=== PATIENT | male | born 1990 | race African-American/Black ===

== ENCOUNTER 2017-08-03 02:06 | Emergency (ER) | payer MEDICAID, SELFPAY ==
[~2017-08-03] VITALS: Ht 177.8 cm; Wt 81.8 kg
[2017-08-03 02:15] VITALS: BP 141/81
[2017-08-03] MEDS ORDERED: VITA10006 PO (02:21)
[2017-08-03] MEDS ORDERED: VITA250L PO (02:21)
[2017-08-03] MEDS ORDERED: DERMABOND TOPICAL SKIN ADHESIVE TOP ONE (02:30)
== END 2017-08-03 03:10 | disposition home or self-care (01) ==
LOC: M ED 02:06
DX: S61.412A Laceration without foreign body of left hand, initial encounter (principal); W26.2XXA Contact with edge of stiff paper, initial encounter; Y92.89 Other specified places as the place of occurrence of the external cause; Y93.89 Activity, other specified; Y99.8 Other external cause status; Z87.891 Personal history of nicotine dependence

== ENCOUNTER → 2018-09-10 | Outpatient (REF) | payer MEDICAID, SELFPAY ==
[2018-09-10 18:46] LABS: ALBUMIN 4.2 GM/DL (3.2-5.2); ALKALINE PHOSPHATASE 66 U/L (45-117); ALT/SGPT 22 U/L (12-78); ANION GAP 5 MEQ/L (8-16); AST/SGOT 21 U/L (7-37); BILIRUBIN,TOTAL 0.8 MG/DL (0.2-1.0); BLOOD UREA NITROGEN 13 MG/DL (7-18); CALCIUM LEVEL 8.7 MG/DL (8.5-10.1); CARBON DIOXIDE LEVEL 29 MEQ/L (21-32); CHLORIDE LEVEL 106 MEQ/L (98-107); CREATININE FOR GFR 1.05 MG/DL (0.70-1.30); GLOMERULAR FILTRATION RATE > 60.0 (>60); GLUCOSE, FASTING 82 MG/DL (70-100); POTASSIUM SERUM 5.1 MEQ/L (3.5-5.1); SODIUM LEVEL 140 MEQ/L (136-145); TESTOSTERONE 604 NG/DL (241-827); TOTAL 25(OH) VITAMIN D 16.9 NG/ML (30.0-100.0); TOTAL PROTEIN 7.7 GM/DL (6.4-8.2); VITAMIN B12 LEVEL 790 PG/ML (247-911)
== END ==
LOC: M LAB REF 16:25
DX: F41.9 Anxiety disorder, unspecified (principal); F34.1 Dysthymic disorder
CPT/HCPCS: 84403

== ENCOUNTER → 2019-01-15 | Outpatient (REF) | payer OTHER, MEDICAID ==
[~2019-01-15] MED LIST: VITA10006 PO; VITA250L PO
[2019-01-15 19:42] LABS: CHLAMYDIA DNA AMPLIFICATION NEGATIVE (NEGATIVE); GC DNA AMPLIFICATION NEGATIVE (NEGATIVE)
[2019-01-16 06:28] LABS: HIV 1&2 SCREEN CENTAUR NEGATIVE (NEGATIVE)
== END ==
LOC: M LAB REF 16:34
PROVIDERS: ATTEND Nurse Practitioner Adult Health
DX: Z11.3 Encounter for screening for infections with a predominantly sexual mode of transmission (principal)

== ENCOUNTER 2020-11-22 12:03 | Emergency (ER) | payer MEDICAID, OTHER ==
[~2020-11-22] VITALS: Ht 177.8 cm; Wt 96.1 kg
[2020-11-22 12:03] VITALS: BP 138/85
[2020-11-22] MEDS ORDERED: AUGM875T28 PO (12:25)
[2020-11-22] MEDS ORDERED: PRED20TA PO (12:25)
--- OUTSIDE RECORDS SUMMARY | 2020-11-22 12:59 | CCD ---
Author Organization Unknown Address [address] [place] [address] Phone [phone] Care Team Providers Care Carpentry Foreman Name Role Phone Kathleen Hayes Unavailable Unavailable Allergies Code Code System Name Reaction Severity Status Onset Wellbutrin Other Moderate Active 41032 RxNorm Zoloft Other Severe Active Medications Name Status Start Date Stop Date amoxicillin 500 mg capsule TAKE ONE CAPSULE BY MOUTH EVERY 8 HOURS UNTIL GONE Completed 09/15/2020 cholecalciferol (vitamin D3) 5000 IU daily OTC Active Not available cholecalciferol (vitamin D3) 1,250 mcg ( 50,000 unit) capsule TAKE ONE CAPSULE BY MOUTH EVERY WEEK Completed escitalopram 10 mg tablet TAKE ONE TABLET BY MOUTH ONCE DAILY Active Not available Problems Name Status Onset Date Source Dysthymia Active 01/15/[address] Concept Active 01/15/2018 History Evaluation Procedure Unknown 01/15/2018 History Clinical Finding Unknown 01/15/2018 History Overweight Active 09/10/2018 History Vitamin D Deficiency Active 10/14/2018 History Anal Fissure Unknown 01/19/2019 History Melena Active 01/19/2019 History Digestive System Finding Active 01/19/2019 History Gastroesophageal Reflux Disease without Esophagitis Active 03/05/2019 History Dental Caries on Smooth Surface Penetrating into Pulp Active 12/02/2019 History Body Mass Index 25-29 - Overweight Active 03/28/2020 History Impotence Active 03/28/2020 History Chronic Constipation Active 03/28/2020 History Cognitive Deficit in Attention Active 03/28/2020 H istory Procedure by Method Active 03/28/2020 History Severe Recurrent Major Depression without Psychotic Features Unk nown 04/18/2020 History Generalized Anxiety Disorder Active 04/18/2020 His tory Stress Monitoring Status Active 04/25/2020 History Procedures Notes: No known surgical history Results Lab Results None recorded. Past Encounters 10/24/2020 Severe Recurrent Major Depression without Psychotic Features; Dysthymia; Generalized Anxiety Disorder Luci Reyes LMSW: [address] , [facility] [address], [place] [address], Ph. 09/27/2020 Dysthymia Luci Reyes [facility]: [address] [facility], [facility] [address], [place] [address], Ph. 09/15/2020 Dysthymia; Vitamin D Deficiency Lonny Edwards, [facility]: [address] [facility], [facility] [address], [place] [address], Ph. 09/12/2020 Dysthymia; Generalized Anxiety Disorder Luci Reyes [facility]: [address] [facility], [facility] [address], [place] [address], Ph. 08/29/2020 Severe Recurrent Major Depression without Psychotic Features Luci Reyes [facility]: [address] [facility], [facility] [address], [place] [address], Ph. Social History Tobacco Smoking Status Never Smoker Vaccine List None recorded. Plan of Care Reminders Provider Appointments None recorded. Lab None recorded. Referral None recorded. Procedures None recorded. Surgeries None recorded. Imaging None recorded. Vitals 09/15/2020 09:50AM TELE[facility] 20 Height 71 in 03/28/2020 Height Weight Blood Pressure 71 in 203 lbs 117/74 mm[Hg] 03/05/2019 Height Weight Blood Pressure 71 in 188 lbs 2.08 oz 143/93 mm[Hg] 01/19/2019 Height Weight Blood Pressure 71 in 182 lbs 138/85 mm[Hg] 01/15/2019 Height Weight Blood Pressure 71 in 183 lbs 4 oz 122/84 mm[Hg] 11/25/2018 Height Weight Blood Pressure 71 in 185 lbs 2.08 oz 145/89 mm[Hg] 10/14/2018 Height Weight Blood Pressure 71 in 195 lbs 126/76 mm[Hg]
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
--- OUTSIDE RECORDS SUMMARY | 2020-11-22 12:59 | CCD ---
Author Organization Unknown Address [address] [place] [address] Phone [phone] Care Team Providers Care Solar System Designer Name Role Phone Kathleen Hayes Unavailable Unavailable Allergies Code Code System Name Reaction Severity Status Onset Wellbutrin Other Moderate Active 71280 RxNorm Zoloft Other Severe Active Medications Name [...] Results Lab Results None recorded. Past Encounters 10/31/2020 Dysthymia; Generalized Anxiety Disorder Luci Reyes LMSW: [address], [place] [address], Ph. 10/24/2020 Severe Recurrent Major Depression without Psychotic Features; Dysthymia; Generalized Anxiety Disorder Luci Reyes [facility]: [address], [facility] [address], [place] [address], Ph. 09/27/2020 Dysthymia Luci Reyes [facility]: [address] [facility], [facility] [address], [place] [address], Ph. 09/15/2020 Dysthymia; Vitamin D Deficiency Lonny Edwards, [facility]: [address], [facility] [address], [place] [address], Ph. 09/12/2020 Dysthymia; Generalized Anxiety Disorder Luci Reyes [facility]: [address] [facility], [facility] [address], [place] [address], Ph. 08/29/2020 Severe Recurrent Major Depression without Psychotic Features Luci Reyes [facility]: [address], [place] [address], Ph. Social History Tobacco Smoking Status Never [...]
--- OUTSIDE RECORDS SUMMARY | 2020-11-22 13:00 | CCD ---
Author Organization Unknown Address [address] [place] [address] Phone [phone] Care Team Providers Care Associate Professor Of Kinesiology Name Role Phone Kathleen Hayes Unavailable Unavailable Allergies None recorded. Medications Name Status Start Date Stop Date amoxicillin 500 mg capsule TAKE ONE CAPSULE BY MOUTH EVERY 8 HOURS UNTIL GONE Active Not available cholecalciferol (vitamin D3) 1,250 mcg ( 50,000 unit) capsule TAKE ONE CAPSULE BY MOUTH EVERY WEEK Active No t available Problems Name Status Onset Date Source Dysthymia Active 01/15/[address] Concept Active 01/15/2018 History Evaluation Procedure Active 01/15/2018 History Clinical Finding Active 01/15/2018 History Overweight Active 09/10/2018 History Vitamin D Deficiency Active 10/14/2018 History Anal Fissure Active 01/19/2019 History Melena Active 01/19/2019 History Digestive System Finding Active 01/19/2019 History Finding of Esophagus Active 03/05/2019 History [...] Results Lab Results None recorded. Past Encounters 09/12/2020 Dysthymia; Generalized Anxiety Disorder Luci Reyes LMSW: [address], [address], [place] [address], Ph. 08/29/2020 Severe Recurrent Major Depression without Psychotic Features Luci Reyes LMSW: [address], [address], [place] [address], Ph. Social History None recorded. Vaccine List None recorded. Plan of Care Reminders Provider Appointments None recorded. Lab None recorded. Referral None recorded. Procedures None recorded. Surgeries None recorded. Imaging None recorded. Vitals 03/28/2020 Height Weight Blood Pressure 71 in [...]
--- OUTSIDE RECORDS SUMMARY | 2020-11-22 13:00 | CCD ---
Author Organization Unknown Address [address] [place] [address] Phone [phone] Care Team Providers Care Electrocardiograph Technician Name Role Phone Kathleen Hayes Unavailable Unavailable Allergies Code Code System Name Reaction Severity Status Onset Wellbutrin Other Moderate Active 36024 RxNorm Zoloft Other Severe Active Medications Name [...] Results Lab Results None recorded. Past Encounters 09/27/2020 Dysthymia Luci Reyes LMSW: [address], [address], [place] [address], Ph. 09/15/2020 Dysthymia; Vitamin D Deficiency Lonny Edwards RPA-C: [address] [facility], [facility] [address], [place] [address], Ph. 09/12/2020 Dysthymia; Generalized Anxiety Disorder Luci Reyes [facility]: [address] [facility], [facility] [address], [place] [address], Ph. 08/29/2020 Severe Recurrent Major Depression without Psychotic Features [facility] [address] , [facility] [address], [place] [address], Ph. Social History Tobacco Smoking Status Never [...]
--- OUTSIDE RECORDS SUMMARY | 2020-11-22 13:00 | CCD ---
Author Organization Unknown Address [address] [place] [address] Phone [phone] Care Team Providers Care Personnel Representative Name Role Phone Kathleen Hayes Unavailable Unavailable Allergies Code Code System Name Reaction Severity Status Onset Wellbutrin Other Moderate Active 45970 RxNorm Zoloft Other Severe Active Medications Name Status Start Date Stop Date amoxicillin 500 mg capsule TAKE ONE CAPSULE BY MOUTH EVERY 8 HOURS UNTIL GONE Completed 09/15/2020 cholecalciferol (vitamin D3) 5000 IU daily OTC Active Not available cholecalciferol (vitamin D3) 1,250 mcg ( 50,000 unit) capsule TAKE ONE CAPSULE BY MOUTH EVERY WEEK Completed Lexapro 10 mg tablet Take 1 tablet every day by oral route. Active Not available Problems Name Status Onset [...] Results Lab Results None recorded. Past Encounters 09/15/2020 Dysthymia; Vitamin D Deficiency Lonny Edwards, RPA[facility]: [address], [address], [place] [address], Ph. 09/12/2020 Dysthymia; Generalized Anxiety Disorder Luci Reyes [facility]: [address], [facility] [address], [place] [address], Ph. 08/29/2020 Severe Recurrent Major Depression without Psychotic Features Luci Reyes [facility]: [address], [facility] [address], [place] [address], Ph. Social History Tobacco Smoking Status Never [...]
--- OUTSIDE RECORDS SUMMARY | 2020-11-22 13:00 | CCD ---
Author Organization Unknown Address [address] [place] [address] Phone [phone] Care Team Providers Care Auto Damage Trainee Name Role Phone Kathleen Haeys Unavailable Unavailable Allergies None recorded. Medications Name [...] Severe Recurrent Major Depression without Psychotic Features Act agustin 04/18/2020 History Generalized Anxiety Disorder Active 04/18/2020 His tory Stress Monitoring Status Active 04/25/2020 History Procedures Notes: No known surgical history Results Lab Results None recorded. Past Encounters 08/29/2020 Severe Recurrent Major Depression without Psychotic Features Luci Reyes [facility]: [address] [facility], [facility] [address], [place] [address], Ph. Social History None recorded. Vaccine List [...]
--- OUTSIDE RECORDS SUMMARY | 2020-11-22 13:09 | CCD ---
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 psychotic features Severe Recurrent Major Depression without Psychotic Features Problem 04/18/2020 12:00:00 AM EDT SARA ([facility]) 84562661 Inattention Inattention 03/28/2020 12:00:14 PM EDT [facility] 574944876 Male erectile dysfunction, unspecified M rama erectile dysfunction, unspecified 03/28/2020 12:00:14 PM EDT [facility] 564.09 Chronic constipation Chronic constipation 03/28 12:00:14 PM EDT [facility] V70.0 Encounter for general adult medical exam ination with abnormal findings Encounter for general adult medical examination with abnormal findings 03/28/2020 12:00:14 PM EDT [facility] V85.24 BMI 28.0-28.9 BMI 28.0-28.9 03/28/2020 12:00:14 PM EDT [facility] [id number] Procedure by method Procedure by Method Problem 0 03/28/2020 12:00:00 AM EDT SARA ([facility]) [id number] 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 Problem 03/28/2020 12:00:00 AM EDT SARA ([facility]) 584484156 Chronic constipation Chronic Constipation Problem 03/28/2020 12:00:00 AM EDT SARA ([facility]) 905616518 Impotence Impotence Problem 03/28/2020 12:00:00 AM ED T SARA ([facility]) 354226039 Body mass index 25-29 - overweight Body Mass Ind ex 25-29 - Overweight Problem 03/28/2020 12:00:00 AM EDT SARA ([facility]) 522602524 Procedure by method Procedure by Method Problem 0 03/28/2020 12:00:00 AM EDT SARA ([facility]) [id number] 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 Problem 03/28/2020 12:00:00 AM EDT SARA ([facility]) 601891547 Chronic constipation Chronic Constipation Problem 03/28/2020 12:00:00 AM EDT SARA ([facility]) 885396547 Impotence Impotence Problem 03/28/2020 12:00:00 AM ED T SARA ([facility]) 179543885 Body mass index 25-29 - overweight Body Mass Ind ex 25-29 - Overweight Problem 03/28/2020 12:00:00 AM EDT SARA ([facility]) 826501567 Procedure by method Procedure by Method Problem 0 03/28/2020 12:00:00 AM EDT SARA ([facility]) [id number] 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 Problem 03/28/2020 12:00:00 AM EDT SARA ([facility]) 623401646 Chronic constipation Chronic Constipation Problem 03/28/2020 12:00:00 AM EDT SARA ([facility]) 218054760 Impotence Impotence Problem 03/28/2020 12:00:00 AM ED T SARA ([facility]) 635888810 Body mass index 25-29 - overweight Body Mass Ind ex 25-29 - Overweight Problem 03/28/2020 12:00:00 AM EDT SARA ([facility]) 427211977 Procedure by method Procedure by Method Problem 0 03/28/2020 12:00:00 AM EDT SARA ([facility]) 616987528943220 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 Problem 03/28/2020 12:00:00 AM EDT SARA ([facility]) 093234591 Chronic constipation Chronic Constipation Problem 03/28/2020 12:00:00 AM EDT SARA ([facility]) 712323699 Impotence Impotence Problem 03/28/2020 12:00:00 AM ED T SARA ([facility]) 105975651 Body mass index 25-29 - overweight Body Mass Ind ex 25-29 - Overweight Problem 03/28/2020 12:00:00 AM EDT SARA ([facility]) 740145471 Procedure by method Procedure by Method Problem 0 03/28/2020 12:00:00 AM EDT SARA ([facility]) 802064117045031 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 Problem 03/28/2020 12:00:00 AM EDT SARA ([facility]) 497292925 Chronic constipation Chronic Constipation Problem 03/28/2020 12:00:00 AM EDT SARA ([facility]) 596314036 Impotence Impotence Problem 03/28/2020 12:00:00 AM ED T SARA ([facility]) 074509037 Body mass index 25-29 - overweight Body Mass Ind ex 25-29 - Overweight Problem 03/28/2020 12:00:00 AM EDT SARA ([facility]) 391416312 Procedure by method Procedure by Method Problem 0 03/28/2020 12:00:00 AM EDT SARA ([facility]) 367915331417198 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 Problem 03/28/2020 12:00:00 AM EDT SARA ([facility]) 793781225 Chronic constipation Chronic Constipation Problem 03/28/2020 12:00:00 AM EDT SARA ([facility]) 640969307 Impotence Impotence Problem 03/28/2020 12:00:00 AM ED T SARA ([facility]) 665536193 Body mass index 25-29 - overweight Body Mass Ind ex 25-29 - Overweight Problem 03/28/2020 12:00:00 AM EDT SRAA ([facility]) 590730145 Procedure by method Procedure by Method Problem 0 03/28/2020 12:00:00 AM EDT SARA ([facility]) 771562688182954 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 Problem 03/28/2020 12:00:00 AM EDT SARA ([facility]) 132542859 Chronic constipation Chronic Constipation Problem 03/28/2020 12:00:00 AM EDT SARA ([facility]) 047757382 Impotence Impotence Problem 03/28/2020 12:00:00 AM ED T SARA ([facility]) 611444722 Body mass index 25-29 - overweight Body Mass Ind ex 25-29 - Overweight Problem 03/28/2020 12:00:00 AM EDT SARA ([facility]) 521.03 DENTAL CARIES EXTENDING INTO PULP DENTAL CARIES EXTEND ING INTO PULP 12/02/2019 02:22:37 PM EST [facility] [id number] Dental caries on smooth surface penetrat ing into pulp Dental Caries on Smooth Surface Penetrating into Pulp Problem 020 12:00:00 AM EST [facility]ARA ([facility]) 6803685190326197 Dental caries on smooth surface penetrat ing into pulp Dental Caries on Smooth Surface Penetrating into Pulp Problem 020 12:00:00 AM EST SARA ([facility]) 8532030654290445 Dental caries on smooth surface penetrat ing into pulp Dental Caries on Smooth Surface Penetrating into Pulp Problem 020 12:00:00 AM EST SARA ([facility]) 5398023686909609 Dental caries on smooth surface penetrat ing into pulp Dental Caries on Smooth Surface Penetrating into Pulp Problem 020 12:00:00 AM EST SARA ([facility]) 5330464195272039 Dental caries on smooth surface penetrat ing into pulp Dental Caries on Smooth Surface Penetrating into Pulp Problem 020 12:00:00 AM EST SARA ([facility]) 1440100288792365 Dental caries on smooth surface penetrat ing into pulp Dental Caries on Smooth Surface Penetrating into Pulp Problem 12:00:00 AM EST SARA ([facility]) [id number] Dental caries on smooth surface penetrat ing into pulp Dental Caries on Smooth Surface Penetrating into Pulp Problem 020 12:00:00 AM EST SARA ([facility]) 64078057 Anal fissure Anal Fissure Problem 01/19/2019 12:0 0:00 AM EDT - 09/15/2020 12:00:00 AM EST SARA ([facility]) 51543753 Anal fissure Anal Fissure Problem 01/19/2019 12:0 0:00 AM EDT - 09/15/2020 12:00:00 AM EST SARA ([facility]) 59975208 Anal fissure Anal Fissure Problem 01/19/2019 12:0 0:00 AM EDT - 09/15/2020 12:00:00 AM EST SARA ([facility]) [id number] Anal fissure Anal Fissure Problem 01/19/2019 12:0 0:00 AM EDT - 09/15/2020 12:00:00 AM EST SARA ([facility]) 79321410 Anal fissure Anal Fissure Problem 01/19/2019 12:0 0:00 AM EDT - 09/15/2020 12:00:00 AM EST SARA ([facility]) [id number] Clinical finding Clinical Finding Problem 018 12:00:00 AM EDT - 09/15/2020 12:00:00 AM EST SARA ([facility]) [id number] Evaluation procedure Evaluation Procedure Problem 01/15/2018 12:00:00 AM EDT - 09/15/2020 12:00:00 AM EST SARA ([facility]) [id number] Clinical finding Clinical Finding Problem 018 12:00:00 AM EDT - 09/15/2020 12:00:00 AM EST SARA ([facility]) [id number] Evaluation procedure Evaluation Procedure Problem 01/15/2018 12:00:00 AM EDT - 09/15/2020 12:00:00 AM EST SARA ([facility]) [id number] Clinical finding Clinical Finding Problem 018 12:00:00 AM EDT - 09/15/2020 12:00:00 AM EST SARA ([facility]) [id number] Evaluation procedure Evaluation Procedure Problem 01/15/2018 12:00:00 AM EDT - 09/15/2020 12:00:00 AM EST SARA ([facility]) [id number] Clinical finding Clinical Finding Problem 018 12:00:00 AM EDT - 09/15/2020 12:00:00 AM EST SARA ([facility]) [id number] Evaluation procedure Evaluation Procedure Problem 01/15/2018 12:00:00 AM EDT - 09/15/2020 12:00:00 AM EST SARA ([facility]) [id number] Clinical finding Clinical Finding Problem 018 12:00:00 AM EDT - 09/15/2020 12:00:00 AM EST SARA ([facility]) [id number] Evaluation procedure Evaluation Procedure Problem 01/15/2018 12:00:00 AM EDT - 09/15/2020 12:00:00 AM EST SARA ([facility]) Results ID Date Data Source [id number] 06/28/2020 10:45:03 AM EDT [facility] In-House Lab TestsDate/Time Collect ed: June 28, 2020 9:15 AMComments: COVID test conducted in right nostril PT tolerated well. [place] LPN, June 28, 2020 10:45 AMAssessment & Plan Orders:Specimen Handling [CPT- [id number]] COVID-19 Testing [CPT-COVID] Name Value Range Interpretation Code Description Data Rose rce(s) Supporting Document(s) ID Date Data Source [id number] 06/28/2020 09:15:00 AM EDT [facility] Name Value Range Interpretation Code Description Data [facility] rce(s) Supporting Document(s) SARS-COV-2 RNA RESP QL ANIL+PROBE [facility] This lab was ordered by [facility] and reported by [facility]. ID Date Data Source [id number] 03/28/2020 11:15:12 AM EDT [facility] Measurements & CalculationsHeight: 71 inches (5 ft. 11 in.) 180.34 cm Weight: 203 pounds 92.27 kg Body Mass Index (BMI): 28.42BMI Interpretation: OverweightBody Surface Area (BSA): 2.12Weight Management Education Done (Nutrition/Physical Activity)Vital SignsTemperature: 97.6F tympanic Pulse Rate: 75 beats/minuteRespiratory Rate: 18 respirations/minuteBlood Pressure: 117/74 left arm sitting automaticO2 Saturation: 99% room airVital Signs performed by: Amita Oh LPN, March 28, 2020 11:29 AMVital Signs performed by: Lonny STEVENSON, March 28, 2020 11:33 AMInitial Intake Information From: patientRoom #: 1Infectious Disease / Travel ScreeningRecent travel for you or any close contacts? NoHave you had any close contact with anyone diagnosed with or under investigation for COVID-19 (coronavirus)? NoFever? NoRespiratory symptoms: cough, cold, congestion, shortness of breath, difficulty breathing? NoLoss of smell? NoLoss of taste? NoSmoking, Tobacco, Vaping or Smoke Exposure StatusSmoke Status: former smokerTobacco Use: NoDo you vape? NoHealthcare HistorySince your last office visit...Have you been admitted to the hospital? NoHave you been to an emergency room (ER) or urgent care clinic? NoHave you seen another healthcare provider? NoHave you seen a dentist? NoIntake performed by: Amita Oh LPN, March 28, 2020 11:18 AMRate Your HealthIn general, would you say your health is? Very GoodPain AssessmentAre you currently having any pain which... You would like your provider to address? No Affects your activity level? NoDepression Screening - PHQ-2Over the last two weeks, have you... Had little interest or pleasure in doing things? Nearly every day Been feeling down, depressed, or hopeless? Nearly every day PHQ-2 Score: 6Anxiety Screening - NATO-2Over the last two weeks, have you been... Feeling nervous, anxious, or on edge? Nearly every day Unable to stop or control worrying? Nearly every day NATO-2 Score: 6Generalized Anxiety Disorder 7-Item Screening (NATO-7)Answer Guide:0 = Not at all1 = Several days2 = Over half the days3 = Nearly every dayOver the last 2 weeks, how often have you been bothered by the following problems?Feeling nervous, anxious, or on edge: 3Not being able to stop or control worryinWorrying too much about different things: 2Trouble relaxinBeing so restless that it's hard to sit still: 3Becoming easily annoyed or irritable: 3Feeling afraid as if something awful might happen: 3Answer Guide:0 = Not difficult at all1 = Somewhat difficult2 = Very difficult3 = Extremely difficultHow difficult have these made it for you to do your work, take care of things at home, or get along with other people? 3GAD-7 Screening Results NATO-2 Score: 6GAD-7 Score: 20Functional Impairment: Extremely difficultRecommendation: Severe anxietyPHQ-9 1. Over the last 2 weeks, patient reports the following frequency of symptoms: a. Little interest or pleasure in doing things -Nearly every day b. Feeling down, depressed, or hopeless -Nearly every day c. Trouble falling asleep, staying asleep, or sleeping too much -Nearly every day d. Feeling tired or having little energy -Nearly every day e. Poor appetite or overeating -Nearly every day f. Feeling bad about yourself, feeling that you are a failure, or feeling that you have let yourself or your family down -Nearly every day g. Trouble concentrating on things such as reading the newspaper or watching television -Nearly every day h. Moving or speaking so slowly that other people could have noticed. Or being so fidgety or restless that you have been moving around a lot more than usual -Several days i. Thinking that you would be better off or that you want to hurt yourself in some way -Not at all2. If you checked off any problems, how difficult have these problems made it for you to do your work, take care of things at home, or get along with other people? - Extremely DifficultToday's PHQ-9 Results Score: 22 Severity: Severe Diagnosis Recommendation: Major Depression Functional Impairment: Extremely DifficultToday's Follow-Up Action Depression follow-up done. Follow-Up Action: Referred to Behavioral Health - outpatient servicesPRAPARE Sociodemographic Characteristics Race: Black or Ethnicity: Not or Preferred Language: EnglishFamily and Home Address: [address] [place] [address] What is your housing situation today? I have housing Are you worried about losing your housing? NoMoney and Resources What is the highest level of school that you have finished? some college Employed? No Are you seeking work? No Insurance: [facility] - [facility] Community PlanIn the past year, have you or any family members you live with been unable to get any of the following when it was really needed? Denies Insecurity: clothing, children's zoo caretaker, phone, legal services Admits Insecurity: food, utilities, yesIn the past year, have you had trouble affording costs associated with health insurance (such as deductibles, co- payments, etc.)? NoSocial and Emotional Health How often do you see or talk to people that you care about and feel close to? Less than once a week How stressed are you? Very muchAdditional Optional Domains In the past 3 months, have you spent more than 2 nights in a row in a group home, intermediate, retirement center or juvenile correctional facility? No Has lack of transportation kept you from medical appointments or from getting your medications? NoIn the past year, have you had trouble getting any of the following when it was really needed (check all that apply)?noneIn the past year, have you had trouble paying the costs associated with health care or medicine (such as co-payments, costs for services, prices of medicines)? NoHow confident are you that you can control and manage most of your health problems? Somewhat confident Are you a refugee? No (Country of origin: [place]) Do you feel physically and emotionally safe where you live? Yes In the past year, have you been afraid of a partner, ex-partner? NoScreening, Brief Intervention, & Referral to Treatment (SBIRT)Pre- Screening Questions How many times have you have 5 or more drinks in a day? 1How many times have you used an illegal drug or used a prescription medication for a non-medical reason? 64Performed by: Amita Oh LPN, March 28, 2020 11:25 AMPatient History Medical History:PTSDanxietydepressionSurgical History:No known surgical historyFamily History:mother bipolarSocial/Personal History: Chief Complaintannual examHistory of Present Illness (HPI)30 yo male here for referral to .Pt feels inattention, lack of focus, especially while in class. States he has episodes of hopelessness that sometimes are triggered and keep him in "a funk for a few days". Currently in summer session [employer] [facility] online classes. 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 Requests refill on Anusol-HC, requests suppositories for refractory pain. Pt has never had good control with Miralax, Colace, or anusol. Has had suppositories prescribed but never approved by insurance. HPI performed by: Lonny STEVENSON, March 28, 2020 11:37 AMTransitions of Care InboundProblem ReviewProblem List was reviewed and/or updated during this visit.Medication Reconciliation & ReviewMedication List was reviewed and/or updated during this visit, including review of any [id number] medications, herbal therapies, and/or supplements.Allergy ReviewAllergy List was reviewed and/or updated during this visit. Patient has no known allergies.Adult Preventive CareProvider Calculated and Reviewed all Clinical Protocols for patient today. Labs/Meds/Other Counseling-Nutrition and Physical Activity:BMI Interpretation: Overweight (03/28/2020) Counseling: Done (03/28/2020) Physical Activity: Done (03/28/2020)Review of Systems General: Denies loss of appetite, chills, dizziness, fatigue, fever, headache, feeling ill. Eyes: Denies blurring of vision, double vision. Ears/Nose/Throat: Denies earache, ringing in ears, decreased hearing, nasal congestion, sore throat, swollen glands. Cardiovascular: Denies chest pain, palpitations, feeling faint. Respiratory: Denies cough, difficulty breathing, shortness of breath, wheezing. Gastrointestinal: Complains of constipation, pain with BM, blood in stool. Denies nausea, vomiting, diarrhea, abdominal pain, black or tarry stools. Genitourinary: Complains of impotence. Denies pain with urination, burning with urination, incomplete emptying, blood in urine. Musculoskeletal: Denies joint pain, body aches. Skin: Denies rash, suspicious lesions. Neurologic: Denies weakness, numbness/tingling, feeling faint. Psychiatric: Complains of see HPI, depression, anxiety, feeling stressed. Physical ExamGeneral Appearance: well nourished, well hydrated, no acute distressEyes, External: conjunctivae and lids normal, EOMIExternal Ears: normal, no lesions or deformitiesHearing: grossly intactOtoscopy: canals clear, tympanic membranes intact, no fluid, light reflex intact bilaterallyExternal Nose: normal, no lesions or deformitiesNasal: mucosa, septum, and turbinates normal, nares patentLips/Teeth/Gums: no gingival inflammation, no labial lesionsPharynx: tongue normal, posterior pharynx without erythema or exudate, no thrush/aphthous ulcerNeck: supple, no masses, trachea midline, full range of motion of neckThyroid: no nodules, masses, tenderness, or enlargementRespiratory, Auscultation: clear to auscultation bilaterally; no rales, rhonchi, or wheezesRespiratory, Effort: no intercostal retractions or use of accessory musclesCardiovascular, Auscultation: S1, S2 audible; no murmur, rub, or gallop; RRRPeripheral Circulation: no clubbing, cyanosis, edema, or varicositiesAbdomen: soft, non-tender, no masses, bowel sounds normalGait & Station: normalSkin, Inspection: no rashes, lesions, or ulcerationsOrientation: oriented to time, place, and personMood & Affect: anxious appearing, good eye contact, somewhat flat affect, talkativeJudgment & Insight: intactCare Management Plan Transitions of CareInboundRate Your HealthIn general, would you say your health is? Very GoodAssessment & Plan Problems:Added: Encounter for general adult medical examination with abnormal findings (ICD-V70.0) (ICD10- Z00.01) Assessment: Instructions: Recommend annual medical appointments. Recommend routine dental and vision care. Recommend influenza vaccines annually and tetanus boosters every 10 years.BMI 28.0-28.9 (ICD-V85.24) (UVJ70-Z45.28) Assessment: Instructions: Recommend healthy lifestyle modification. Encourage portion control, healthy food choices, and increasing routine physical activity. Recommendation is for 150 minutes throughout the week of cardiovascular exercise.Chronic constipation (ICD-564.09) (OYK24-J17.09) Assessment: Instructions: Take Colace daily (up to three times daily) until bowel movements are regular. May take Miralax as needed. Referral to GI for further evaluation.Male erectile dysfunction, unspecified (OQI83-D58.9) Assessment: Instructions: Check PSA. If normal, then trial of Viagra as needed.Inattention (WXQ51-S66.840) Assessment: Pt is unsure if anxiey and is concerned about underlying learning disability. Appears more anxiety and possibly ADD/ADHD symptoms, but agree for MH eval. Instructions: Possibly anxiety related. Referred for mental health evaluation.Assessed:GERD (ICD- 530.81) (MLN65-Q89.9) Assessment: Instructions: Recommend taking omeprazole only as needed. If you start needing this daily, please let me know and we need to evaluate your heartburn further.Chronic depression (ICD-311) (MCR23-I41.1) Assessment: Instructions: Referred to mental health counseling in house.Anxiety disorder, unspecified (OMU08-E24.9) Assessment: Instructions: As above.Overweight (ICD-278.02) (VNP30-T68.3) Assessment: Instructions: Fasting labs have been ordered for you today. When labs are drawn, please ensure that you have had nothing to eat or drink for 8-10 hours prior to the blood drawn. Water or black coffee is OK to have before the blood draw.Anal or rectal pain (ICD-569.42) (NPM66-Y02.89) Assessment: Instructions: As above, secondary to constipation. Increase water and daily exercise to keep the gut moving more consistently. Refilled Anusol-HC and sent for suppositories for as needed.Anal fissure, unspecified (VDS93-Z47.2) Assessment: Instructions: As above.Rectal tenesmus (ICD-787.99) (VDL24-G33.8) Assessment: Instructions: As above.Hematochezia (ICD-578.1) (HTL46-K47.1) Assessment: Instructions: As above.Removed:Screening examination for venereal disease (ICD-V74.5) (ICD10- Z11.3), Encounter for screening for human immunodeficiency virus [HIV] (ICD- V73.89) (OAI58-L69.4), Body mass index (BMI) 27.0-27.9, adult (ICD-V85.23) (IIN52-X17.27)Patient Instructions/Care Plan: Encounter for general adult medical examination with abnormal findings: Recommend annual medical appointments. Recommend routine dental and vision care. Recommend influenza vaccines annually and tetanus boosters every 10 years.GERD: Recommend taking omeprazole only as needed. If you start needing this daily, please let me know and we need to evaluate your heartburn further.BMI 28.0-28.9: Recommend healthy lifestyle modification. Encourage portion control, healthy food choices, and increasing routine physical activity. Recommendation is for 150 minutes throughout the week of cardiovascular exercise.Chronic constipation: Take Colace daily (up to three times daily) until bowel movements are regular. May take Miralax as needed. Referral to GI for further evaluation.Male erectile dysfunction- unspecified: Check PSA. If normal, then trial of Viagra as needed.Chronic depression: Referred to mental health counseling in house.Anxiety disorder- unspecified: As above.Overweight: Fasting labs have been ordered for you today. When labs are drawn, please ensure that you have had nothing to eat or drink for 8-10 hours prior to the blood drawn. Water or black coffee is OK to have before the blood draw.Anal or rectal pain: As above, secondary to constipation. Increase water and daily exercise to keep the gut moving more consistently. Refilled Anusol-HC and sent for suppositories for as needed.Anal fissure- unspecified: As above.Rectal tenesmus: As above.Hematochezia: As above.Inattention: Possibly anxiety related. Referred for mental health evaluation. Plan developed in collaboration with patient and/or familyMedications:VITAMIN D3 125 MCG (5000 UT) ORAL CAPSULEOMEPRAZOLE 20 MG ORAL CAPSULE DELAYED RELEASEMIRALAX ORAL POWDERCOLACE 100 MG ORAL CAPSULEANUSOL-HC 2.5 % RECTAL CREAMHYDROCORTISONE ACETATE 25 MG RECTAL SUPPOSITORYVITAMIN D3 67813 UNIT ORAL TABLETMedication Changes:Added: VITAMIN D3 125 MCG (5000 UT) ORAL CAPSULERefilled:ANUSOL-HC 2.5 % RECTAL CREAM-apply bid prn Qty: 60[Unspecified] Refills: 2 Method: ElectronicHYDROCORTISONE ACETATE 25 MG RECTAL SUPPOSITORY-1 supp TN every day as needed Qty: 12[Suppository] Refills: 5 Method: ElectronicRemoved:AMOXICILLIN 500 MG CAPS-1 tablet by mouth every 8 hours until gone, AMOXICILLIN 500 MG CAPS-1 tablet by mouth every 8 hours until gone, WELLBUTRIN XL 150 MG ORAL TABLET EXTENDED RELEASE 24 HOUR-take one tablet by mouth daily in the evenings., WELLBUTRIN XL 300 MG ORAL TABLET EXTENDED RELEASE 24 HOUR-take one tablet by mouth daily in AM, RANITIDINE HCL 150 MG ORAL TABLET-1 tab by mouth twice per day before mealsAllergies:No Known Allergies (updated 03/28/2020) Orders:COMP METABOLIC PANEL [CPT-91181] CBC W/DIFF [CPT- 28463] LIPID PANEL [CPT-47686] TSH [CPT-13823] T-4 free [CPT-97891] Vitamin D 250H Unspecified [CPT-78037] PROSTATE CANCER SCREENING; PSA TEST [CPT-G0103] Mental Health Consult [CPT-93811] Gastroenterology Consult [CPT-63853] Preventive, Est, (18-39) [CPT-60270] Follow-Up Return to clinic: in 90 days for follow upAdditional Follow-Up: 3 month follow-upClinical Visit Summary CompletedMedications:HYDROCORTISONE ACETATE 25 MG RECTAL SUPPOSITORY (HYDROCORTISONE ACETATE) 1 supp TN every day as needed #12[Suppository] x 5 Route:RECTAL Entered and Authorized by: Lonny STEVENSON Method used: Electronically to [facility]* (retail) [address] [place] [address] Fax: Note to Pharmacy: Route: RECTAL; RxID: [id number] 2.5 % RECTAL CREAM (HYDROCORTISONE) apply bid prn #60[Unspecified] x 2 Route:RECTAL Entered and Authorized by: Lonny STEVENSON Method used: Electronically to [facility]* (retail) [address] [place] [address] Fax: Note to Pharmacy: Route: RECTAL; RxID: [id number] signed by Lonny STEVENSON on 04/06/2020 at 8:05 AM Name Value Range Interpretation Code Description Data Rose rce(s) Supporting Document(s) ID Date Data Source [id number] 12/02/2019 12:58:00 PM [facility] Current Problems: DENTAL CARIES EXTENDIN G INTO PULP (ICD-521.03) (ICD10- K02.63)GERD (ICD-530.81) (ERO40-Z20.9)Rectal tenesmus (ICD-787.99) (ICD10- R19.8)Hematochezia (ICD-578.1) (EBG68-O08.1)Anal fissure, unspecified (ICD10- K60.2)vitamin D deficiency (ICD-268.9) (NRW42-M64.9)Overweight (ICD-278.02) (VWU82-S60.3)Anal or rectal pain (ICD-569.42) (TYZ39-I43.89)Encounter for screening for lipoid disorders (ICD-V77.91) (JCQ16-B44.220)Screening examination for venereal disease (ICD-V74.5) (QPV68-O62.3)Encounter for screening for human immunodeficiency virus [HIV] (ICD-V73.89) (JJK88-D86.4)Body mass index (BMI) 27.0-27.9, adult (ICD-V85.23) (WAU46-A33.27)Anxiety disorder, unspecified (AGI97-O51.9)Chronic depression (ICD-311) (YEY83-R15.1)Problem list reviewed during this update.Current Medications: AMOXICILLIN 500 MG CAPS (AMOXICILLIN) 1 tablet by mouth every 8 hours until gone; Route: ORALAMOXICILLIN 500 MG CAPS (AMOXICILLIN) 1 tablet by mouth every 8 hours until gone; Route: ORALRANITIDINE HCL 150 MG ORAL TABLET (RANITIDINE HCL) 1 tab by mouth twice per day before meals; Route: ORALOMEPRAZOLE 20 MG ORAL CAPSULE DELAYED RELEASE (OMEPRAZOLE) 1 capsule by mouth every day; Route: ORALMIRALAX ORAL POWDER (POLYETHYLENE GLYCOL 3350) 1 capful bid until bowel movements regular, then once daily prn constipation- titrate to effect- take with large glass of water; Route: ORALCOLACE 100 MG ORAL CAPSULE (DOCUSATE SODIUM) 1 po tid prn constipation; Route: ORALANUSOL-HC 2.5 % RECTAL CREAM (HYDROCORTISONE) apply bid prn; Route: RECTALHYDROCORTISONE ACETATE 25 MG RECTAL SUPPOSITORY (HYDROCORTISONE ACETATE) 1 supp TN every day as needed; Route: RECTALWELLBUTRIN XL 150 MG ORAL TABLET EXTENDED RELEASE 24 HOUR (BUPROPION HCL) take one tablet by mouth daily in the evenings.; Route: ORALVITAMIN D3 83587 UNIT ORAL TABLET (CHOLECALCIFEROL) take one tablet by mouth once weekly.; Route: ORALWELLBUTRIN XL 300 MG ORAL TABLET EXTENDED RELEASE 24 HOUR (BUPROPION HCL) take one tablet by mouth daily in AM; Route: ORALMedication list reviewed during this update.Allergy list reviewed during this update.No known allergies. Dental Chart: Procedures:Type - CDT Code - Description B - (D0230) Intraoral, periapical, each additional radiographic image on Tooth # 14 (Performed by Jenny Balbuena DMD) B - (D0140) Limited oral evaluation - problem focused on Tooth # 2 (Performed by Jenny Balbuena DMD) B - (D0220) Intraoral, periapical, first radiographic image on Tooth # 2 (Performed by Jenny Balbuena DMD) Chart Notes:nando (Dec 02 2019 2:21PM): S: CC:" I have severe pain in my left side, it depends what I eat and I have pain on my right , both on top"O: RMHx (-) Per Pt. HPI: [address]: 10 BP: 135/83 P: 60, PA of 2 and 14, BW of 2, Cold test, no response on 2 and 14.A: DDS recommends RCT od Ext. Patient wants root canals done. , DX:caries into pulpP:Refer to ENDOE-scribe Amoxicillin 500mg q8h until gone dispense 21 tabs zero refills [facility] about narcotic,told pt to alternate Ibuprophen 600- 800mg and tylenol 500mg every 4 to 6 hrs for pain when needed Assisted By: [place]: Jenny Richardson DMD by nando (12/02/2019 2:21 PM): Tooth Notes and Watches:- Tooth 14 Note: Referred to Jenny Perez DMD by estuardo (12/02/2019 1:28 PM): - Tooth 2 Note: Referred to Jenny Perez DMD by estuardo (12/02/2019 1:28 PM): Assessment & Plan Problems:Added: DENTAL CARIES EXTENDING INTO PULP (ICD-521.03) (LBL42-N70.63)Medications:AMOXICILLIN 500 MG CAPSAMOXICILLIN 500 MG CAPSRANITIDINE HCL 150 MG ORAL TABLETOMEPRAZOLE 20 MG ORAL CAPSULE DELAYED RELEASEMIRALAX ORAL POWDERCOLACE 100 MG ORAL CAPSULEANUSOL- HC 2.5 % RECTAL CREAMHYDROCORTISONE ACETATE 25 MG RECTAL SUPPOSITORYWELLBUTRIN XL 150 MG ORAL TABLET EXTENDED RELEASE 24 HOURVITAMIN D3 73783 UNIT ORAL TABLETWELLBUTRIN XL 300 MG ORAL TABLET EXTENDED RELEASE 24 HOURMedication Changes:New Prescription:AMOXICILLIN 500 MG CAPS-1 tablet by mouth every 8 hours until gone Qty: 21 Refills: 0 Method: AMOXICILLIN 500 MG CAPS-1 tablet by mouth every 8 hours until gone Qty: 21[Capsule] Refills: 0 Method: ElectronicAllergies:No Known Allergies (updated 12/02/2019) Orders:Endodontics Referral [CPT-11322] Name Value Range Interpretation Code Description Data Rose rce(s) Supporting Document(s) ID Date Data Source [id number] 11/18/2019 01:15:21 PM [facility] Patient History Medical History:PTSDanxi etydepressionFamily History:mother bipolar Current Problems: GERD (ICD-530.81) (MSJ73-N82.9)Rectal tenesmus (ICD- 787.99) (JTG44-I70.8)Hematochezia (ICD-578.1) (MPE48-E85.1)Anal fissure, unspecified (PQG18-M67.2)vitamin D deficiency (ICD-268.9) (ICD10- E55.9)Overweight (ICD-278.02) (ZQK51-S41.3)Anal or rectal pain (ICD-569.42) (XDF09-R14.89)Encounter for screening for lipoid disorders (ICD-V77.91) (ICD10- Z13.220)Screening examination for venereal disease (ICD-V74.5) (ICD10- Z11.3)Encounter for screening for human immunodeficiency virus [HIV] (ICD- V73.89) (XYS99-N59.4)Body mass index (BMI) 27.0-27.9, adult (ICD-V85.23) (ICD10- Z68.27)Anxiety disorder, unspecified (HIH00-H78.9)Chronic depression (ICD-311) (UPQ46-W23.1)Current Medications: RANITIDINE HCL 150 MG ORAL TABLET (RANITIDINE HCL) 1 tab by mouth twice per day before meals; Route: ORALOMEPRAZOLE 20 MG ORAL CAPSULE DELAYED RELEASE (OMEPRAZOLE) 1 capsule by mouth every day; Route: ORALMIRALAX ORAL POWDER (POLYETHYLENE GLYCOL 3350) 1 capful bid until bowel movements regular, then once daily prn constipation- titrate to effect- take with large glass of water; Route: ORALCOLACE 100 MG ORAL CAPSULE (DOCUSATE SODIUM) 1 po tid prn constipation; Route: ORALANUSOL-HC 2.5 % RECTAL CREAM (HYDROCORTISONE) apply bid prn; Route: RECTALHYDROCORTISONE ACETATE 25 MG RECTAL SUPPOSITORY (HYDROCORTISONE ACETATE) 1 supp TN every day as needed; Route: RECTALWELLBUTRIN XL 150 MG ORAL TABLET EXTENDED RELEASE 24 HOUR (BUPROPION HCL) take one tablet by mouth daily in the evenings.; Route: ORALVITAMIN D3 37642 UNIT ORAL TABLET (CHOLECALCIFEROL) take one tablet by mouth once weekly.; Route: ORALWELLBUTRIN XL 300 MG ORAL TABLET EXTENDED RELEASE 24 HOUR (BUPROPION HCL) take one tablet by mouth daily in AM; Route: ORALPast Medical History:(reviewed - no changes required) PTSDanxietydepression Dental Chart: Procedures:Type - CDT Code - Description C - (D2222) No Charge Visit (Performed by Lynn Silva) Chart Notes:danny (Nov 18 2019 1:37PM): Patient presented for NIGHT AUDITOR comp exam. Patient reported that he wanted to get his tooth fixed, and has an appointment coming at [facility] on Nov 30. Explained that if it is less than 6 months insurance will not cover NIGHT AUDITOR comp exam, and that we cannot guarantee that we can get the tooth fixed before Nov. Suggested that since patient is already an established patient at [facility] to call them up to see if they have any cancellations. Patient reported that he is not willing to pay out of pocket, and will continue with his appt on Nov 30. Dismissed patient without any questionsLynn Silva by danny (11/18/2019 1:37 PM): Tooth Notes and Watches: Note: There are Un-Billed (C Type) procedures on this document.Assessment & Plan Medications:RANITIDINE HCL 150 MG ORAL TABLETOMEPRAZOLE 20 MG ORAL CAPSULE DELAYED RELEASEMIRALAX ORAL POWDERCOLACE 100 MG ORAL CAPSULEANUSOL-HC 2.5 % RECTAL CREAMHYDROCORTISONE ACETATE 25 MG RECTAL SUPPOSITORYWELLBUTRIN XL 150 MG ORAL TABLET EXTENDED RELEASE 24 HOURVITAMIN D3 78666 UNIT ORAL TABLETWELLBUTRIN XL 300 MG ORAL TABLET EXTENDED RELEASE 24 HOURAllergies:No Known Allergies (updated 03/05/2019) Name Value Range Interpretation Code Description Data Rose rce(s) Supporting Document(s) Procedure Vital Signs ID Date Data Source UNK Name Value Range Interpretation Code Description Data Source(s) Body height 71 [in_i] 71 [in_i] [facility] ([facility]) Body height 71 [in_i] 71 [in_i] [facility] ([facility]) Body height 71 [in_i] 71 [in_i] [facility] ([facility]) Body height 71 [in_i] 71 [in_i] [facility] ([facility]) Body height 71 [in_i] 71 [in_i] [facility] ([facility]) Body height 71 [in_i] 71 [in_i] [facility] ([facility]) Body weight 3248 [oz_av] 3248 [oz_av] [facility] ([facility]) Systolic blood pressure 117 mm[Hg] 117 mm[Hg] A [facility] ([facility]) Body mass index (BMI) [Ratio] 28.42 kg/m2 28.42 kg/m2 [facility] ([facility]) Body height 71 [in_i] 71 [in_i] [facility] ([facility]) Diastolic blood pressure 74 mm[Hg] 74 mm[Hg] [facility] ([facility]) Body weight 3248 [oz_av] 3248 [oz_av] [facility] ([facility]) Systolic blood pressure 117 mm[Hg] 117 mm[Hg] A [facility] ([facility]) Body height 71 [in_i] 71 [in_i] [facility] ([facility]) Diastolic blood pressure 74 mm[Hg] 74 mm[Hg] [facility] ([facility]) Body weight 3248 [oz_av] 3248 [oz_av] [facility] ([facility]) Systolic blood pressure 117 mm[Hg] 117 mm[Hg] A [facility] ([facility]) Body height 71 [in_i] 71 [in_i] [facility] ([facility]) Diastolic blood pressure 74 mm[Hg] 74 mm[Hg] [facility] ([facility]) Body weight 3248 [oz_av] 3248 [oz_av] [facility] ([facility]) Systolic blood pressure 117 mm[Hg] 117 mm[Hg] A [facility] ([facility]) Body height 71 [in_i] 71 [in_i] [facility] ([facility]) Diastolic blood pressure 74 mm[Hg] 74 mm[Hg] [facility] ([facility]) Body weight 3248 [oz_av] 3248 [oz_av] [facility] ([facility]) Systolic blood pressure 117 mm[Hg] 117 mm[Hg] A [facility] ([facility]) Body height 71 [in_i] 71 [in_i] [facility] ([facility]) Diastolic blood pressure 74 mm[Hg] 74 mm[Hg] [facility] ([facility]) Body weight 3248 [oz_av] 3248 [oz_av] [facility] ([facility]) Systolic blood pressure 117 mm[Hg] 117 mm[Hg] A [facility] ([facility]) Body height 71 [in_i] 71 [in_i] [facility] ([facility]) Diastolic blood pressure 74 mm[Hg] 74 mm[Hg] [facility] ([facility]) Body weight 3248 [oz_av] 3248 [oz_av] [facility] ([facility]) Systolic blood pressure 117 mm[Hg] 117 mm[Hg] A [facility] ([facility]) Body height 71 [in_i] 71 [in_i] [facility] ([facility]) Diastolic blood pressure 74 mm[Hg] 74 mm[Hg] [facility] ([facility]) Patient Treatment Plan of Care Planned Activity Planned Date Details Description Data Source (s) Cholecalciferol 78311 UNT Oral Capsule [facility] ([facility]) Amoxicillin 500 MG Oral Capsule [facility] ([facility]) Cholecalciferol 01818 UNT Oral Capsule [facility] ([facility]) Amoxicillin 500 MG Oral Capsule [facility] ([facility]) Cholecalciferol 15432 UNT Oral Capsule [facility] ([facility]) Amoxicillin 500 MG Oral Capsule [facility] ([facility]) Cholecalciferol 18701 UNT Oral Capsule [facility] ([facility]) Amoxicillin 500 MG Oral Capsule [facility] ([facility]) Cholecalciferol 19386 UNT Oral Capsule [facility] ([facility]) Amoxicillin 500 MG Oral Capsule [facility] ([facility])
== END 2020-11-22 12:35 | disposition home or self-care (01) ==
LOC: M ED 12:03
DX: K04.7 Periapical abscess without sinus (principal); L03.211 Cellulitis of face